=== PATIENT | female | born 2000 | race Caucasian/White ===

== ENCOUNTER → 2020-12-29 14:36 | Outpatient (CLI) | payer MEDICAID, SELFPAY ==
[2020-12-29 16:40] LABS: Vitamin D,25 Hydroxy 27.9 ng/mL
[2020-12-29 16:46] LABS: T4 Free Direct 1.04 ng/dL (0.76-1.46); Thyroid Stim Hormone (TSH) 0.67 uIU/mL (0.358-3.74)
== END ==
PROVIDERS: Visit Provider Nurse Practitioner Primary Care
DX: F34.1 Dysthymic disorder (principal)
CPT/HCPCS: 36415; 82306; 84439; 84443

== ENCOUNTER 2021-07-28 08:58 | Outpatient (CLI) | payer MEDICAID, SELFPAY ==
[2021-07-28 10:08] LABS: Hematocrit 44.7 % (37-47); Hemoglobin 15.1 g/dL (12.0-15.0); Mean Corp Hgb Conc 33.8 g/dL (32-36); Mean Corpuscular Volume 91.8 fL (81-99); Mean Platelet Vol. 10.4 fl (6.2-12.0); Platelet Count 239 K/mm3 (150-450); RBC Distribution Width CV 12.1 % (11.6-14.6); RBC Distribution Width SD 41.2 fl (35.1-43.9); Red Blood Count 4.87 M/mm3 (4.2-5.4); White Blood Count 7.5 K/mm3 (4.4-11.0)
[2021-07-28 10:33] LABS: ALB/GLOB Ratio 1.1 RATIO (0.9-2.4); AST(SGOT) 24 U/L (15-37); Alanine Aminotransfer ALT/SGPT 33 U/L (13-56); Albumin, Serum 3.9 g/dL (3.2-5.0); Alkaline Phosphatase 65 U/L (45-117); Amylase 47 U/L (25-115); Anion Gap 3 (5-15); BUN 11 mg/dL (7-18); BUN/Creat Ratio 16.3 RATIO (10-20); Calcium,Total 8.9 mg/dL (8.5-10.1); Chloride 104 mmol/L (98-107); Creatinine, Serum 0.68 mg/dL (0.55-1.02); EST Glomerular Filtration Rate 116 mL/min (>60); Est Glom Filt Rate - Afr Amer 141 mL/min (>60); Globulin 3.4 g/dL (2.2-4.2); Glucose 81 mg/dL (74-106); Lipase 81 U/L (73-393); Potassium 3.5 mmol/L (3.5-5.1); Protein, Total 7.3 g/dL (6.4-8.2); Sodium Level 138 mmol/L (136-145)
[2021-07-30 14:08] LABS: Endomysial Antibody IgA Negative (Negative)
[2021-07-30 14:50] LABS: Immunoglobulin A 113 mg/dL (87-352); t-Transglutaminase IgA <2 U/mL (0-3)
== END 2021-07-28 23:59 | disposition home or self-care (01) ==
LOC: LAB 09:00
PROVIDERS: PCP Nurse Practitioner Primary Care; Referring Provider Nurse Practitioner Primary Care; Visit Provider Nurse Practitioner Primary Care
DX: K52.9 Noninfective gastroenteritis and colitis, unspecified (principal)
CPT/HCPCS: 36415; 80053; 82150; 82784; 83516; 83690; 85027; 86255

== ENCOUNTER → 2021-08-20 | Outpatient (CLI) | payer MEDICAID, SELFPAY ==
[2021-08-24 13:42] LABS: Calprotectin, Stool 25 ug/g (0-120)
== END | disposition home or self-care (01) ==
LOC: LABSPEC 13:44
PROVIDERS: PCP Nurse Practitioner Primary Care; Referring Provider Nurse Practitioner Primary Care; Visit Provider Nurse Practitioner Primary Care
DX: R10.9 Unspecified abdominal pain (principal); R19.7 Diarrhea, unspecified
CPT/HCPCS: 82274; 83993; 87506

== ENCOUNTER → 2021-08-27 | Outpatient (CLI) | payer MEDICAID, SELFPAY ==
--- NOTE | 2021-08-27 09:46 | US_ITS ---
STUDY: ABDOMINAL ULTRASOUND REASON FOR EXAM: Female, 20 years old. ABDOMINAL PAIN TECHNIQUE: Transabdominal ultrasound was performed with real-time and static ball scale imaging. TECHNICAL QUALITY: Adequate. COMPARISON: None. FINDINGS: Liver: The liver is mildly enlarged and measures 17 cm. There is normal echogenicity of the liver. The bile ducts are within normal limits. There is hepatic color flow. The direction of portal flow is hepatopetal. There is no demonstrated mass lesion. Gallbladder: Normal distended gallbladder. The gallbladder wall measures 2 mm. There is a negative sonographic Linares''s sign. There is no pericholecystic fluid. There are no gallstones. Common Bile Duct (C.B.D.): The common bile duct measures 2 mm. Pancreas: Normal size of the head, body and tail of the pancreas. There is normal echogenicity of the pancreas. There is no demonstrated pancreatic mass or cyst. Spleen: Normal size of the spleen. The spleen measures 11.6 cm x 4.5 cm x 3.8 cm. Right Kidney: Normal size of the right kidney. The right kidney measures 11.9 cm x 4.5 cm x 3.9 cm. Normal renal cortex. The right cortex measures 1.3 cm. There is no demonstrated renal mass or cyst. There is no right hydronephrosis. Left Kidney: Normal size of the left kidney. The left kidney measures 11.5 cm x 4.4 cm x 4.9 cm. Normal renal cortex. The left cortex measures 1.7 cm. There is no demonstrated renal mass or cyst. There is no left hydronephrosis. Aorta: Unremarkable I.V.C.: The IVC is patent. There is no ascites. US/Abdomen Complete IMPRESSION: Normal abdominal ultrasound examination. Electronically Signed: Mihir Braga MD at 12:28 EDT ,
== END | disposition home or self-care (01) ==
LOC: US 09:43
PROVIDERS: PCP Nurse Practitioner Primary Care; Visit Provider Nurse Practitioner Primary Care
DX: R10.9 Unspecified abdominal pain (principal)
CPT/HCPCS: 76700

== ENCOUNTER → 2021-09-20 | Outpatient (CLI) | payer MEDICAID, SELFPAY ==
[2021-09-20 17:03] LABS: Absolute Lymphocyte Count 1.56 X10^3/uL (0.83-4.51); Basophil# 0.05 X10^3/uL; Basophil% 0.8 % (0-1); Eosinophil# 0.04 X10^3/uL; Eosinophils% 0.6 % (0-5); Hematocrit 44.1 % (37-47); Hemoglobin 14.9 g/dL (12.0-15.0); Lymphocyte # 1.56 X10^3/ul (0.83-4.51); Lymphocyte % 24.9 % (19-41); Mean Corp Hgb Conc 33.8 g/dL (32-36); Mean Corpuscular Hgb 31.4 pg (27.0-32.0); Mean Platelet Vol. 10.7 fl (6.2-12.0); Monocyte# 0.57 X10^3/uL; Monocyte% 9.1 % (0-10); NRBC Flagged by Analyzer 0 % (0-5); Neutrophil # 4.03 X10^3/uL (2.7-7.7); Neutrophil % 64.4 % (47-70); Platelet Count 275 K/mm3 (150-450); RBC Distribution Width CV 11.8 % (11.6-14.6); RBC Distribution Width SD 40.4 fl (35.1-43.9); Red Blood Count 4.74 M/mm3 (4.2-5.4); White Blood Count 6.3 K/mm3 (4.4-11.0)
[2021-09-20 17:09] LABS: Erythrocyte Sedimentation Rate 3 mm/hr (0-30)
[2021-09-20 17:33] LABS: CRP < 2.90 mg/L (0.0-3.0)
== END | disposition home or self-care (01) ==
LOC: LAB 15:36
PROVIDERS: PCP Nurse Practitioner Primary Care; Visit Provider Nurse Practitioner Adult Health
DX: R05.9 Cough, unspecified (principal); R10.9 Unspecified abdominal pain
CPT/HCPCS: 36415; 85025; 85652; 86140

== ENCOUNTER → 2021-12-06 | Outpatient (CLI) | payer MEDICAID, SELFPAY ==
[2021-12-06 15:14] LABS: ALB/GLOB Ratio 1.2 RATIO (0.9-2.4); AST(SGOT) 21 U/L (15-37); Alanine Aminotransfer ALT/SGPT 34 U/L (13-56); Albumin, Serum 3.9 g/dL (3.2-5.0); Alkaline Phosphatase 53 U/L (45-117); Anion Gap 5 (5-15); BUN 12 mg/dL (7-18); BUN/Creat Ratio 18.1 RATIO (10-20); Calcium,Total 9.3 mg/dL (8.5-10.1); Chloride 108 mmol/L (98-107); Creatinine, Serum 0.66 mg/dL (0.55-1.02); EST Glomerular Filtration Rate 119 mL/min (>60); Est Glom Filt Rate - Afr Amer 143 mL/min (>60); Globulin 3.2 g/dL (2.2-4.2); Glucose 82 mg/dL (74-106); Magnesium 2.3 mg/dL (1.6-2.6); Protein, Total 7.1 g/dL (6.4-8.2); Sodium Level 141 mmol/L (136-145)
[2021-12-06 15:16] LABS: Vitamin B12 387 pg/mL (211-911)
[2021-12-13 08:50] LABS: Vitamin B1, Thiamine 144.5 nmol/L (66.5-200.0)
== END | disposition home or self-care (01) ==
LOC: LAB 14:02
PROVIDERS: PCP Nurse Practitioner Primary Care; Referring Provider Nurse Practitioner Primary Care; Visit Provider Nurse Practitioner Primary Care
DX: L75.0 Bromhidrosis (principal)
CPT/HCPCS: 36415; 80053; 82607; 83735; 84425

== ENCOUNTER 2021-12-25 12:14 | Day surgery (SDC) | payer MEDICAID, SELFPAY ==
[2021-12-25] VITALS (7 sets, daily range): BP systolic 94–142; BP diastolic 58–77; PULSE 80–103; RESP 16; TEMP 36.7–37.4; O2SAT 97–100; BMI 19.5
[2021-12-25] MEDS: Lactated Ringers 1,000 ML 15 ML IV (12:30)
[2021-12-25 12:42] LABS: Internal QC Validated? YES +Cl - CLEAR BKGD; Pregnancy, Urine Negative Negative
--- NOTE | 2021-12-25 13:30 | COLBX_PTH ---
PATIENT: LILIANA CHOWDHURY LOC: [facility] U#:[id number] AGE/SX: 21/F ROOM: RE12/25/[address]: Dr. Jose Garvin DO : 2000 BED: DIS: 12/25/2021 SPEC #: [id number] RECD: 12/25/21 15:24 STATUS: BRYAN LAURYN #: [id number] QUIRINO: 12/25/21 13:[address]: Jose Garvin DEPT: SURGICAL PATHOLOGY RECD BY: Hernando Ashley ENTERED: 12/26/21 08:22 SP TYPE: COLON BX OTHR DR: Lorrie Jimenez, VINNIE Tissues: A - Duodenum, NOS B - Gastric mucous membrane C - Esophagus, NOS D - Ileum, NOS E - COLON BIOPSY F - Rectum, NOS Procedures: Special Stain Group II Surgery Specimen Level IV Alcian Blue/PAS (control) HEADER OPERATION: Colonoscopy, [place] [place] with biopsies PRE-OP DIAGNOSIS: Cough, abdominal pain TISSUE SUBMITTED: A ? Duodenum biopsy, B ? Gastric body biopsy, C ? Distal esophagus biopsy, D ? Terminal ileum biopsy, E ? Random colon biopsies, F ? Rectum biopsy MICROSCOPIC DIAGNOSIS A. Duodenum, biopsy: Fragments of duodenal mucosa, no pathologic diagnosis. B. Gastric body, biopsy: Mild gastritis. See microscopic description and comment. C. Distal esophagus, biopsy: Fragments of gastroesophageal mucosa with chronic inflammation. Intestinal metaplasia (goblet cell metaplasia) not identified. See comment. D. Terminal ileum, biopsy: Fragments of small intestinal mucosa, no pathologic diagnosis. E. Colon, random biopsy: Fragments of colonic mucosa, no pathologic diagnosis. F. Rectum, biopsy: Fragments of colonic mucosa, no pathologic diagnosis. SJ:maite 12/27/2021 COMMENT B. The results of immunohistochemistry for Helicobacter pylori will be reported separately ([id number]). C. Alcian blue/PAS stain with matched control is used in the evaluation of the specimen. MICROSCOPIC DESCRIPTION Slides are reviewed. B. The specimen shows fragments of gastric mucosa with chronic inflammatory cell infiltrates in the lamina propria consisting of lymphocytes and plasma cells, consistent with mild chronic gastritis. GROSS DESCRIPTION A - Received in fixative is one container labeled with the patient's name and designated duodenum biopsy. The specimen consists of multiple irregular fragments of light alfred soft tissue that in aggregate measure 1.5 x 0.3 x 0.1 cm. The specimen is totally submitted in one cassette. B - Received in fixative is one container labeled with the patient's name and designated gastric body biopsy. The specimen consists of two irregular fragments of light alfred soft tissue that in aggregate measure 0.5 x 0.4 x 0.1 cm. The specimen is totally submitted in one cassette. C - Received in fixative is one container labeled with the patient's name and designated distal esophagus biopsy. The specimen consists of two irregular fragments of light alfred soft tissue that in aggregate measure 0.6 x 0.3 x 0.1 cm. The specimen is totally submitted in one cassette. D - Received in fixative is one container labeled with the patient's name and designated terminal ileum biopsy. The specimen consists of multiple irregular fragments of light alfred soft tissue that in aggregate measure 1.2 x 0.3 x 0.1 cm. The specimen is totally submitted in one cassette. E - Received in fixative is one container labeled with the patient's name and designated random colon biopsy. The specimen consists of multiple irregular fragments of light alfred soft tissue that in aggregate measure 1.5 x 1 x 0.1 cm. The specimen is totally submitted in one cassette. F - Received in fixative is one container labeled with the patient's name and designated rectum biopsy. The specimen consists of multiple irregular fragments of light alfred soft tissue that in aggregate measure 1.5 x 0.4 x 0.1 cm. The specimen is totally submitted in one cassette. / SJ:rg 12/26/2021 TC:3 CPT: 14969 x6, 00440
--- NOTE | 2021-12-25 13:30 | IMM_PTH ---
PATIENT: LILIANA CHOWDHURY LOC: [facility] U#:[id number] AGE/SX: 21/F ROOM: RE12/25/[address]: Dr. Jose Garvin DO : 2000 BED: DIS: 12/25/2021 SPEC #: [id number] RECD: 12/26/21 09:38 STATUS: BRYAN REQ #: [id number] QUIRINO: 12/25/21 13:[address]: Jose Garvin DEPT: IMMUNOHISTOCHEMISTRY RECD BY: Laquita Ledesma ENTERED: 12/26/21 09:38 SP TYPE: IMMUNO OTHR DR: Lorrie Jimenez, VINNIE Tissues: B - Stomach, NOS Procedures: H Pylori (initial) PHYSICIAN & INSTITUTION [place] [address] SPECIMEN INFORMATION: Tissue Source: B ? Gastric body biopsy Clinical Info: Cough, abdominal pain Specimen Number: [id number] CPT code: 66387 METHODOLOGY: Deparaffinized sections of prefer/formalin-fixed tissue or PAP/DQ stained slides are incubated with monoclonal/polyclonal antibodies/oligonucleotide probes. Localization is made via biotin free immunoperoxidase method. Appropriate controls are performed and reacted as expected. Results on target cell population are indicated in the following table: RESULTS: ANTIBODY / CLONE RESULT Block B H Pylori (polyclonal) negative These tests were developed and their performance characteristics determined by [facility]. They may not have been cleared or approved by the U.S. Food and Drug Administration. The FDA has determined that such clearance or approval is not necessary. The above immunohistochemical/dualISH markers are ordered and reviewed by the Pathologist. INTERPRETATION: B. Gastric body, biopsy: Negative for Helicobacter pylori organisms. SJ:maite 12/27/2021
--- NOTE | 2021-12-25 13:38 | PCM.HP.BLA ---
History and Physical Date of Admission: 12/25/21 LILIANA CHOWDHURY, is a 20 F who presents to the office today for multiple GI concerns--cough, abdominal pain, diarrhea. She is accompanied by her mother. Her symptoms began approx 3 mos ago. She is most bothered by postprandial cough. She coughs after a full meal but not after only snack, it is a dry cough, can last for 10 minutes. Not coughing in the night. No chest pain or burning. Nothing is refluxing. No difficulty swallowing. No sore throat. Not sure if pantoprazole has helped. Had abdominal pain for one month, above umbilicus, also had bilateral lower abd that radiated around both sides. Was exacerbated by eating.? The abdominal pain has mostly resolved, however she did have cramping after eating certain foods, specifically muffin, spaghetti, PB&J. Gluten and acidic foods are bothersome.? Her celiac test is negative, however she believes she is sensitive to gluten. Nausea from certain foods on an empty stomach. Vomited at the onset a few times, only for a day or so, none since.? She has chronic vertigo, doesn't usually vomit with that.? She had diarrhea, that is much better. Now having BM after eating sometimes, didn't used to have BM after eating. Stool is still soft after eating. No melena or hematochezia. BMs before were daily or QOD, they were not soft. She is lactose intolerant, so she avoids lactose for the most part. Celiac negative. Stool hemoccult negative. Stool negative for enteric pathogens. 08/27/21 RUQ US negative, liver borderline large 17 cm Her sister has Crohn's disease. Comorbidities include vitamin D deficiency, depression, chronic vertigo. Hx of right ankle surgery following jujitsu injury in which she fractured both tib and fib. No allergies ever. 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 She is studying [email or web address]. She has published a sci fi book. ROS Const Constitutional: No fatigue ENT ENT: No difficulty swallowing Gastro GI: Positive for abdominal pain, bloating, change in bowel habits, diarrhea, excessive flatus and nausea/dyspepsia; No belching, change in stool character, coffee ground emesis, constipation, cramping, heartburn, difficulty swallowing, feeling full early, incontinent of stools, Vomiting blood/hematemesis, Blood in stool, loose stools, Black,tarry stools, pain with swallowing, vomiting or other Musc Musculoskeletal: No joint pain Skin Skin: No yellowing of the eye or itchy eyes Psych Psychiatric: No anxiety and Positive for depression Endo Endocrine: No fatigue Aller/Imm Allergy/Immunologic: No itchy eyes Hamzah/Lymp Hematologic/Lymphatic: No easy bleeding or easy bruising Exam Const General: cooperative, healthy appearing, well developed and well groomed Nutritional Appearance: thin Eyes General: appearance normal, both eyes and all related structures Resp Effort & Inspection: normal respiratory effort GI Inspection: normal to inspection Auscultation: normal bowel sounds Skin General: no rashes or lesions noted Neuro Gait: normal gait Psych Affect: normal affect Quality Reporting Tobacco Screening ([facility]) Smoking Status: Never smoker Assessment and Plan Assessment and Plan (1) Cough: ?Status:?Acute (2) Abdominal pain: ?Status:?Inactive ? ? ? Orders:?Orders: ? CRP 09/20/21 R05.9, R10.9 ? ? CBC W/Diff, Automated 09/20/21 R05.9, R10.9 ? ? Erythrocyte Sed Rate 09/20/21 R05.9, R10.9 ?Plan - Justa Niño NP, PLANT ENGINEERING MANAGER-C: 20-year-old female developed gastrointestinal issues approximately 3 months ago.? She has gotten significantly better over time.? Most bothersome symptom at this time is a dry cough that occurs after eating a full meal.? She does occasionally have some nausea from foods specifically acidic or gluten.? Cough may be due to acid reflux considering other GI symptoms at onset. Consider EOE as another possibility.? We will get CBC with differential.? We will get inflammatory markers, especially important considering her sister has Crohn's disease.? Increase pantoprazole to 40 mg daily. Will contact her with results. Consider CT later if needed. Will schedule her for EGD and colonoscopy, can be cancelled if not needed. Plan Details Other Medications: ?Discontinued: ? hydrocodone-acetaminophen 5-300 mg (Vicodin) ?? Discontinued Reason:? Pt no longer taking 1 - 2 tabs? PO Q4H PRN PRN Pain ? ? ? ondansetron HCl ?? Discontinued Reason:? Pt no longer taking 8 mg? PO Q8H PRN PRN Nausea ? ? ? meclizine ?? Discontinued Reason:? Pt no longer taking 25 mg? PO Q12H PRN PRN Dizziness ? ? I have re-examined the patient. There are no clinical changes since date of exam.
--- NOTE | 2021-12-25 14:27 | OP.EGD_ITS ---
Patient Name: Julienne Estes Procedure Date: 12/25/2021 1:39 PM Date of : 2000 Age: 21 Procedure: Upper GI endoscopy Indications: Epigastric abdominal pain, Functional Dyspepsia, Failure to respond to medical treatment Providers: Jose Garvin DO Medicines: Monitored Anesthesia Care Patient Profile: This is a 21 year old female. Refer to note in patient chart for documentation of history and physical. Patient has symptoms. Complications: No immediate complications. Procedure: Pre-Anesthesia Assessment: - Prior to the procedure, a History and Physical was performed, and patient medications and allergies were reviewed. The risks and benefits of the procedure and the sedation options and risks were discussed with the patient. All questions were answered and informed consent was obtained. Patient identification and proposed procedure were verified by the physician in the pre-procedure area. Mental Status Examination: alert and oriented. Airway Examination: normal oropharyngeal airway and neck mobility. Respiratory Examination: clear to auscultation. CV Examination: normal. Prophylactic Antibiotics: The patient does not require prophylactic antibiotics. Prior Anticoagulants: The patient has taken no previous anticoagulant or antiplatelet agents. ASA Grade Assessment: II - A patient with mild systemic disease. After reviewing the risks and benefits, the patient was deemed in satisfactory condition to undergo the procedure. The anesthesia plan was to use moderate sedation / analgesia (conscious sedation). Immediately prior to administration of medications, the patient was re-assessed for adequacy to receive sedatives. The heart rate, respiratory rate, oxygen saturations, blood pressure, adequacy of pulmonary ventilation, and response to care were monitored throughout the procedure. The physical status of the patient was re-assessed after the procedure. After obtaining informed consent, the endoscope was passed under direct vision. Throughout the procedure, the patient's blood pressure, pulse, and oxygen saturations were monitored continuously. The colonoscope was introduced through the mouth, and advanced to the second part of duodenum. The upper GI endoscopy was accomplished without difficulty. The patient tolerated the procedure well. Scope In: 1:48:50 PM Scope Out: 1:54:22 PM Total Procedure Duration Time 0 hours 5 minutes 32 seconds Findings: Patchy mild mucosal variance characterized by smoothness was found in the upper third of the esophagus and in the middle third of the esophagus. Biopsies were taken with a cold forceps for histology. Biopsies were obtained from the proximal and distal esophagus with cold forceps for histology of suspected eosinophilic esophagitis. Estimated blood loss was minimal. Patchy mildly erythematous mucosa without bleeding was found in the gastric body. Biopsies were taken with a cold forceps for histology. Verification of patient identification for the specimen was done. Estimated blood loss was minimal. No gross lesions were noted in the second portion of the duodenum. Biopsies were taken with a cold forceps for histology. Verification of patient identification for the specimen was done. Estimated blood loss was minimal. Impression: - Esophageal mucosal variant. Biopsied. - Erythematous mucosa in the gastric body. Biopsied. - No gross lesions in the second portion of the duodenum. Biopsied. Recommendation: - Discharge patient to home. - Resume previous diet. - Continue present medications. - Await pathology results. Procedure Code(s): --- Professional --- 07676, Esophagogastroduodenoscopy, flexible, transoral; with biopsy, single or multiple CPT copyright 2017 [employer]. All rights reserved. The codes documented in this report are preliminary and upon power truck driver review may be revised to meet current compliance requirements. Jose Garvin DO 12/25/2021 2:27:28 PM This report has been signed electronically. Number of Addenda: 0 Note Initiated On: 12/25/2021 1:39 PM
--- NOTE | 2021-12-25 14:27 | OP.CCLET_ITS ---
12/25/2021 Miranda Corbin Re : Upper GI endoscopy procedure for Julienne Estes Yuer Tony This procedure was performed on Saturday, December 25, 2021. My impressions and recommendations are as follows: Impressions : - Esophageal mucosal variant. Biopsied. - Erythematous mucosa in the gastric body. Biopsied. - No gross lesions in the second portion of the duodenum. Biopsied. Recommendations : - Discharge patient to home. - Resume previous diet. - Continue present medications. - Await pathology results. My findings are described in the full procedure note, which is enclosed. If I can be of further assistance, please feel free to contact me at . Sincerely, Jose Garvin, 12/25/2021 2:27:28 PM This report has been signed electronically.
--- NOTE | 2021-12-25 14:32 | OP.COLON_ITS ---
Patient Name: Julienne Estes Procedure Date: 12/25/2021 1:54 PM Date of : 2000 Age: 21 Procedure: Colonoscopy Indications: Evaluation of unexplained GI bleeding, Clinically significant diarrhea of unexplained origin Providers: Jose Garvin DO Medicines: Monitored Anesthesia Care Patient Profile: This is a 21 year old female. Refer to note in patient chart for documentation of history and physical. Patient has symptoms. Last Colonoscopy: none. The patient's first colonoscopy is today. Complications: No immediate complications. Procedure: Pre-Anesthesia Assessment: - Prior to the procedure, a History and Physical was performed, and patient medications and allergies were reviewed. The risks and benefits of the procedure and the sedation options and risks were discussed with the patient. All questions were answered and informed consent was obtained. Patient identification and proposed procedure were verified by the physician in the pre-procedure area. Mental Status Examination: alert and oriented. Airway Examination: normal oropharyngeal airway and neck mobility. Respiratory Examination: clear to auscultation. CV Examination: normal. Prophylactic Antibiotics: The patient does not require prophylactic antibiotics. Prior Anticoagulants: The patient has taken no previous anticoagulant or antiplatelet agents. ASA Grade Assessment: II - A patient with mild systemic disease. After reviewing the risks and benefits, the patient was deemed in satisfactory condition to undergo the procedure. The anesthesia plan was to use moderate sedation / analgesia (conscious sedation). Immediately prior to administration of medications, the patient was re-assessed for adequacy to receive sedatives. The heart rate, respiratory rate, oxygen saturations, blood pressure, adequacy of pulmonary ventilation, and response to care were monitored throughout the procedure. The physical status of the patient was re-assessed after the procedure. After I obtained informed consent, the scope was passed under direct vision. Throughout the procedure, the patient's blood pressure, pulse, and oxygen saturations were monitored continuously. The colonoscope was introduced through the anus and advanced to the terminal ileum. The colonoscopy was performed without difficulty. The patient tolerated the procedure well. The quality of the bowel preparation was good. Scope In: 1:57:22 PM Scope Withdrawal Time 0 hours 12 minutes 31 seconds Scope Out: 2:14:51 PM Total Procedure Duration Time 0 hours 17 minutes 29 seconds Findings: The digital rectal exam findings include decreased sphincter tone. An area of mildly congested mucosa was found in the rectum. Biopsies were taken with a cold forceps for histology. Verification of patient identification for the specimen was done. Estimated blood loss was minimal. An area of mildly congested mucosa was found in the sigmoid colon and in the transverse colon. Biopsies were taken with a cold forceps for histology. Verification of patient identification for the specimen was done. Estimated blood loss was minimal. The terminal ileum appeared normal. Biopsies were taken with a cold forceps for histology. Verification of patient identification for the specimen was done. Estimated blood loss was minimal. Impression: - Decreased sphincter tone found on digital rectal exam. - Congested mucosa in the rectum. Biopsied. - Congested mucosa in the sigmoid colon and in the transverse colon. Biopsied. - The examined portion of the ileum was normal. Biopsied. Recommendation: - Discharge patient to home. - Resume previous diet. - Continue present medications. - Await pathology results. - Repeat colonoscopy is recommended for surveillance. The colonoscopy date will be determined after pathology results from today's exam become available for review. Procedure Code(s): --- Professional --- 50995, Colonoscopy, flexible; with biopsy, single or multiple CPT copyright 2017 [employer]. All rights reserved. The codes documented in this report are preliminary and upon bowling alley mechanic review may be revised to meet current compliance requirements. Jose Garvin DO 12/25/2021 2:31:30 PM This report has been signed electronically. Number of Addenda: 0 Note Initiated On: 12/25/2021 1:54 PM
--- NOTE | 2021-12-25 14:32 | OP.CCLET_ITS ---
12/25/2021 Mirnada Coribn Re : Colonoscopy procedure for Julienne Estes Dear Tony This procedure was performed on Saturday, December 25, 2021. My impressions and recommendations are as follows: Impressions : - Decreased sphincter tone found on digital rectal exam. - Congested mucosa in the rectum. Biopsied. - Congested mucosa in the sigmoid colon and in the transverse colon. Biopsied. - The examined portion of the ileum was normal. Biopsied. Recommendations : - Discharge patient to home. - Resume previous diet. - Continue present medications. - Await pathology results. - Repeat colonoscopy is recommended for surveillance. The colonoscopy date will be determined after pathology results from today's exam become available for review. My findings are described in the full procedure note, which is enclosed. If I can be of further assistance, please feel free to contact me at . Sincerely, Jose Garvin, 12/25/2021 2:31:30 PM This report has been signed electronically.
== END 2021-12-25 15:26 | disposition home or self-care (01) ==
LOC: EN 12:15 → AC 12:16
PROVIDERS: Anesthesiology; PCP Nurse Practitioner Primary Care; Referring Provider Nurse Practitioner Primary Care; Visit Provider Internal Medicine Gastroenterology
PROC: 0DJD8ZZ Inspection of Lower Intestinal Tract, Via Natural or Artificial Opening Endoscopic (ICD-10-PCS; CPT 45378; principal; 2021-12-25 13:25)
DX: K29.70 Gastritis, unspecified, without bleeding (principal); K30 Functional dyspepsia; R19.7 Diarrhea, unspecified; R05.8 Other specified cough; Z83.79 Family history of other diseases of the digestive system
CPT/HCPCS: 45380; 43239; 81025; 88305; 88313; 88342; J7120; J2405

== ENCOUNTER → 2022-04-12 | Outpatient (CLI) | payer MEDICAID, SELFPAY ==
--- NOTE | 2022-04-12 07:40 | NM_ITS ---
CLINICAL: 21-year-old female with history of postprandial upper abdominal pain. RADIONUCLIDE HEPATOBILIARY SCINTIGRAPHY COMPARISON: Abdominal ultrasound report 08/27/2021 FINDINGS: Following the intravenous administration of 5.2 mCi of 99m Tc Mebrofenin, hepatobiliary images reveal: 1. Relatively prompt and homogeneous radiopharmaceutical concentration is noted by a normal sized liver. No parenchymal defects are identified. 2. Gallbladder activity is identified at 15 minutes post radiopharmaceutical administration. 3. Small intestinal tract is not visualized during 60 minutes of pre-CCK sequential imaging. Small bowel activity is identified following the administration of cholecystokinin. 4. Washout of the radiopharmaceutical by the hepatic parenchyma appears qualitatively normal. Cholecystokinin (0.02 ug/kg) was administered intravenously over a 30-minute period. The post CCK gallbladder ejection fraction calculated at 20 minutes following Cholecystokinin administration was noted to be 94.0 % (normal greater than 35%). During 30 minutes of post CCK imaging, there is scintigraphic evidence of refilling of the gallbladder. SD/Hepatobilliary Img w/Pharm Int IMPRESSION: 1. A gallbladder ejection fraction calculated to be greater than 35% following the administration of Cholecystokinin makes the probability of functional hepatobiliary disease (gallbladder dyskinesia) and/or organic hepatobiliary disease (chronic acalculous cholecystitis and/or cystic duct syndrome) to be low. (Seferino Mosley et al, Journal of Nuclear Medicine 32:1695, 1991). 2. A normal gallbladder ejection fraction with refilling of the gallbladder following CCK administration may represent the presence of Sphincter of Oddi dysfunction. Correlation with Sphincter of Oddi manometry may be of benefit. (Dallin and Dallin, J Nucl Med 38:1824, 1997). Electronically Signed: Albert cMdonald, at 10:43 EST ,
== END | disposition home or self-care (01) ==
PROVIDERS: PCP Nurse Practitioner Primary Care; Visit Provider Nurse Practitioner Adult Health
DX: R10.84 Generalized abdominal pain (principal); R05.9 Cough, unspecified
CPT/HCPCS: 78227; A9537; J2805